=== PATIENT | female | born 1970 | race Caucasian/White ===

== ENCOUNTER 2016-07-29 23:28 | Emergency (ER) | payer BC ==
[~2016-07-29] VITALS: Ht 165.1 cm; Wt 87.1 kg
[~2016-07-29 23:28] MED LIST: Aspirin PO; DAILY VALUE1 EACH PO; ENDOCET 5-3251 EACH PO; Ecotrin PO; Imodium PO; KETOROLAC TROME10 MG PO; PRINIVIL10 MG PO; PROTONIX40 MG PO; ZESTRIL10 MG PO; Zestril,Prinivil PO
[2016-07-30 01:33] LABS: AMPHETAMINE NEGATIVE (500 ng/mL); BARBITURATES NEGATIVE (200 ng/mL); BENZODIAZEPINES NEGATIVE (150 ng/mL); COCAINE NEGATIVE (150 ng/mL); INTERNAL CONTROLS VALID? YES; METHADONE NEGATIVE (200 ng/mL); METHAMPHETAMINE NEGATIVE (500 ng/mL); OPIATES (MORPHINE) NEGATIVE (100 ng/mL); OXYCODONE NEGATIVE (100 ng/mL); PHENCYCLIDINE NEGATIVE (25 ng/mL); PROPOXYPHENE NEGATIVE (300 ng/mL); THC CANNABINOIDS NEGATIVE (50 ng/mL); TRICYCLIC ANTIDEPRESSANTS NEGATIVE (300 ng/mL)
[2016-07-30 03:52] VITALS: BP 141/98
== END 2016-07-30 03:52 | disposition home or self-care (01) ==
LOC: EME → EDBD 23:28 → EME 23:28
PROVIDERS: Emergency Medicine
DX: F10.129 Alcohol abuse with intoxication, unspecified (principal); Y90.6 Blood alcohol level of 120-199 mg/100 ml; I10 Essential (primary) hypertension; Z87.891 Personal history of nicotine dependence
CPT/HCPCS: 99281; 99284; G0480